=== PATIENT | female | born 1995 | race Caucasian/White ===

== ENCOUNTER 2016-08-23 09:49 | Observation (INO) | payer OTHER ==
[~2016-08-23] VITALS: Ht 165.1 cm; Wt 69.9 kg
[~2016-08-23 09:49] MED LIST: SNAP INSULIN P1 EACH SQ
[2016-08-25] MEDS ORDERED: ROCEPHIN1000 MG IV (10:29)
[2016-08-25] MEDS ORDERED: TYLENOL325 MG PO (10:30)
== END 2016-08-25 10:58 | disposition short-term general hospital (02) ==
LOC: IP 09:49 → OBS 09:49 → IP 08-25 10:58
PROVIDERS: ADMIT Family Medicine
DX: N12 Tubulo-interstitial nephritis, not specified as acute or chronic (principal); E10.3299 Type 1 diabetes mellitus with mild nonproliferative diabetic retinopathy without macular edema, unspecified eye; E10.10 Type 1 diabetes mellitus with ketoacidosis without coma; G43.909 Migraine, unspecified, not intractable, without status migrainosus; G44.209 Tension-type headache, unspecified, not intractable; Z82.49 Family history of ischemic heart disease and other diseases of the circulatory system; Z90.89 Acquired absence of other organs
CPT/HCPCS: A9150; G0378; G0379; J0696

== ENCOUNTER → 2016-09-09 | Outpatient (CLI) | payer OTHER ==
[~2016-09-09] MED LIST changes: +ROCEPHIN1000 MG IV; +TYLENOL325 MG PO
== END | disposition short-term general hospital (02) ==
LOC: CLUROL 11:14
DX: N12 Tubulo-interstitial nephritis, not specified as acute or chronic (principal); B96.89 Other specified bacterial agents as the cause of diseases classified elsewhere